=== PATIENT | female | born 2005 | race Hispanic/Latino ===

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

== ENCOUNTER 2023-05-23 02:14 | Observation (INO) | payer MEDICAID ==
[~2023-05-23] VITALS: Ht 160 cm; Wt 66.7 kg
[2023-05-23 02:15] VITALS: BP 145/90; PULSE 82; RESP 18
[2023-05-23 03:24] LABS: APPEARANCE,URINE TURBID (CLEAR); BILIRUBIN,URINE NEGATIVE (NEGATIVE); GLUCOSE, URINE (UA) NEGATIVE (NEGATIVE); KETONES,URINE 5 mg/dL (NEGATIVE); LEUKOCYTE ESTERASE ,URINE 75 Leu/uL (NEGATIVE); NITRATE,URINE NEGATIVE (NEGATIVE); OCCULT BLOOD,URINE SMALL (NEGATIVE); PH,URINE 7.5 (5.0-8.0); PROTEIN,URINE 30 mg/dL (NEGATIVE); UROBILINOGEN,URINE 0.2 mg/dL (0.2-1.0)
[2023-05-23 03:26] LABS: ADD UA MICROSCOPIC YES
[2023-05-23 03:27] LABS: COLOR,URINE YELLOW (YELLOW)
[2023-05-23] MEDS: ACETAMINOPHEN 325 MG TAB ONE (03:29)
[2023-05-23] MEDS ORDERED: ACETAMINOPHEN 325 MG TAB PO ONE (03:30)
[2023-05-23 03:54] LABS: BACTERIA,URINE RARE /HPF (None Seen); MUCUS,URINE RARE LPF (None Seen); RBC,URINE 26-50 /HPF (0-1); SQUAMOUS EPITHELIAL CELL,UR MANY /HPF (0-2)
== END 2023-05-23 03:39 | disposition home or self-care (01) ==
LOC: EDH 02:14 → LDH 02:15
PROVIDERS: ADMIT Obstetrics & Gynecology; ATTEND Obstetrics & Gynecology
DX: O26.892 Other specified pregnancy related conditions, second trimester (principal); R10.9 Unspecified abdominal pain; Z3A.26 26 weeks gestation of pregnancy
CPT/HCPCS: 87088; 81001; G0378